=== PATIENT | female | born 1995 ===

== ENCOUNTER 2022-02-10 10:30 | Outpatient (CLI) | payer OTHER | END 2022-02-10 13:05 | disposition home or self-care (01) | LOC: PRENATAL 10:30 | PROVIDERS: ATTEND Obstetrics & Gynecology Maternal & Fetal Medicine | DX: O36.80X0 Pregnancy with inconclusive fetal viability, not applicable or unspecified (principal); Z36.9 Encounter for antenatal screening, unspecified; Z3A.12 12 weeks gestation of pregnancy ==

== ENCOUNTER 2022-04-05 12:45 | Outpatient (CLI) | payer OTHER | END 2022-04-05 14:43 | disposition home or self-care (01) | LOC: PRENATAL 12:45 | PROVIDERS: ATTEND Obstetrics & Gynecology Maternal & Fetal Medicine | DX: O35.0XX0 Maternal care for (suspected) central nervous system malformation in fetus, not applicable or unspecified (principal); O35.3XX0 Maternal care for (suspected) damage to fetus from viral disease in mother, not applicable or unspecified; Z3A.20 20 weeks gestation of pregnancy ==